=== PATIENT | male | born 1950 | race Caucasian/White ===

== ENCOUNTER 2019-09-08 03:08 | Inpatient (IN) | payer MEDICARE, OTHER ==
[~2019-09-08] VITALS: Ht 157.5 cm; Wt 65.3 kg
--- NOTE | 2019-09-08 05:30 | NUR ---
RN samantha admission notes Pt arrived at the unit with two EMT from [facility] and in a gurney. Pt is 69 Y O Male is a direct admit from [facility]. Pt is alert and orientedX4. Pt speaks [place] and able to make needs known. Respiration is normal. No SOB. No S/S of distress noted. VS is stable. Afebrile. IV sites at LAC# 20 is clean, intact and flush without resistance. Skin assessment is done and performed. Pt's skin is intact. Pt's belonging was checked by DEJAH Gonzalez. Reorient Pt to the room and the use of call light. Pt verbalize understanding. Admission order received from MD. Safety precautions is maintained. Bed at low position, brakes locked, side railsupX2 and call light is within reach. Will continue to monitor.
[2019-09-08 05:40] VITALS: BP 94/52
[2019-09-08 05:45] VITALS: BP 94/52
[2019-09-08] MEDS ORDERED: IV NS 0.9% 1,000 ML IV PRN (05:49)
[2019-09-08] MEDS ORDERED: Z GUARD REMEDY 2 OZ OINT TP PRN (06:00)
[2019-09-08] MEDS ORDERED: MAGNESIUM HYDROXIDE 30 ML UDC PO PRN (06:00)
[2019-09-08] MEDS ORDERED: HYDROCODONE/APAP 5/325MG 1 EACH TABLET PO PRN (06:00)
[2019-09-08] MEDS ORDERED: ONDANSETRON HCL/PF 4 MG/2 ML VIAL IVP PRN (06:00)
[2019-09-08] MEDS ORDERED: MAG HYDROX/AL HYDROX/SIMETH 30 ML UDC PO PRN (06:00)
[2019-09-08] MEDS ORDERED: ZOLPIDEM TARTRATE 5 MG TABLET PO PRN (06:00)
[2019-09-08] MEDS ORDERED: ACETAMINOPHEN 325 MG TABLET PO PRN (06:00)
--- NOTE | 2019-09-08 07:00 | NUR ---
RN medsurg closing notes Pt is resting in bed comfortably. Pt is alert and orientedX4. Respiration is normal. No SOB. No S/S of distress noted. IV sites at LAC# 20 is clean, intact and infusing well NS@ 80 ml/hr. VS is stable. Afebrile. Kept Pt clean, dry and comfortable. All needs met and attended. Safety precautions is maintained. Bed at low position, brakes locked, side railsupX2 and call light is within reach. Will endorse to morning nurse for PACO.
--- NOTE | 2019-09-08 07:49 | NUR ---
MS RN OPENING NOTE RECEIVED PATIENT IN BED RESTING COMFORTABLY. PATIENT IN NO ACUTE DISTRESS. NO SOB NOTED. PATIENT BREATHING IS EVEN AND UNLABORED. PATIENT HOB IS ELEVATED. SAFETY PRECAUTIONS IN PLACE. PATIENT BED ALARM IS ON. PATIENT BED IS LOCKED AND IN LOWEST POSITION. CALL LIGHT WITHIN REACH. WILL CONTINUE TO MONITOR.
[2019-09-08 08:00] VITALS: BP 92/55
[2019-09-08] MEDS: CEFTRIAXONE 1 G in IV D5W 50 ML IV SCH (08:20)
[2019-09-08] MEDS: PANTOPRAZOLE 40 MG VIAL IV SCH (08:22)
[2019-09-08] MEDS ORDERED: CEFTRIAXONE 1 G VIAL IM SCH (09:00)
[2019-09-08] MEDS: METRONIDAZOLE 500MG/ NS 100ML 500 MG in PREMIX 1 EA IV SCH ×2 (09:30→17:21)
[2019-09-08] MEDS ORDERED: METRONIDAZOLE 500MG/ NS 100ML 500 MG in PREMIX 1 EA IV SCH (10:00)
[2019-09-08] MEDS ORDERED: DICY20TA11 PO (11:06)
[2019-09-08] MEDS ORDERED: FLUT1BLS IH (11:06)
[2019-09-08] MEDS ORDERED: DONE10TA44 PO (11:06)
[2019-09-08] MEDS ORDERED: METO25TA4 PO (11:06)
[2019-09-08] MEDS ORDERED: METR-147 PO (11:06)
[2019-09-08] MEDS ORDERED: FERR325T23 PO (11:06)
[2019-09-08] MEDS ORDERED: TAMS-12 PO (11:06)
[2019-09-08] MEDS ORDERED: ERGO500040 PO (11:06)
[2019-09-08] MEDS ORDERED: MONT10TA22 PO (11:06)
[2019-09-08] MEDS ORDERED: CIPR-262 PO (11:06)
[2019-09-08] MEDS ORDERED: OMEP1CAP25 PO (11:06)
[2019-09-08] MEDS ORDERED: LISI-607 PO (11:06)
[2019-09-08] MEDS ORDERED: LIDO700A30 TP (11:06)
[2019-09-08] MEDS ORDERED: LOPE2CAP PO (11:06)
[2019-09-08] MEDS ORDERED: METF-442 PO (11:06)
[2019-09-08] MEDS ORDERED: ALIR150P SQ (11:06)
--- NOTE | 2019-09-08 16:30 | NUR ---
MS RN NOTE BROTHER IN LAW MERCEDES CALLED IN FOR UPDATE IN PLAN OF CARE. PER MERCEDES PATIENT WAS PREVIOUSLY HOSPITALIZED AT [facility] FOR SIMILAR CONDITIONS OF HIS CURRENT ADMISSION. INFORMED [place] GRANADOS AND PER [place] REQUESTED BROTHER IN LAWS CONTACT NUMBER. CONTACT NUMBER GIVEN TO [place]. PER [place] TRY TO OBTAIN RECORDS FROM [facility]. FAXED OVER TO [facility] WITH CONSENT OF PATIENT FOR PREVIOUS HOSPITAL RECORDS. [place] GRANADOS MADE AWARE.
[2019-09-08] MEDS: FERROUS SULFATE (325 MG) 325 MG/TAB TABLET PO SCH (17:00)
[2019-09-08] MEDS ORDERED: DEXTROSE 50%-WATER 50 ML DISP.SYRIN IV PRN (17:00)
[2019-09-08] MEDS: BLOOD SUGAR DIAGNOSTIC 1 EACH STRIP IN SCH ×2 (17:20→21:32)
--- NOTE | 2019-09-08 17:27 | NUR ---
MS RN NOTE PATIENT BLOOD SUGAR 68. NO INSULIN GIVEN PER PROTOCOL.
--- NOTE | 2019-09-08 17:39 | NUR ---
MS RN NOTE INFORMED [place] GRANADOS PATIENT BLOOD SUGAR 69 AND IS MAINTAINED NPO STATUS ON CURRENT FLUIDS 0.9%NS. PER [place] GRANADOS OKAY TO CHANGE IVF TO D5NS AT SAME RATE OF 80ML/HR.
[2019-09-08] MEDS: IV D5/ 0.9% NACL 1,000 ML IV PRN (18:21)
[2019-09-08 18:41] VITALS: BP 101/63
--- NOTE | 2019-09-08 18:52 | NUR ---
MS RN CLOSING NOTE PATIENT IN BED RESTING COMFORTABLY. PATIENT IN NO ACUTE DISTRESS. NO SOB NOTED. PATIENT BREATHING IS EVEN AND UNLABORED. PATIENT BLOOD SUGAR IS 78. PATIENT HOB IS ELEVATED. PATIENT MAINTAINED NPO STATUS. PATIENT KEPT CLEAN, DRY, AND COMFORTABLE THROUGHOUT SHIFT. SAFETY PRECAUTIONS IN PLACE. PATIENT BED ALARM IS ON. PATIENT BED IS LOCKED AND IN LOWEST POSITION. CALL LIGHT WITHIN REACH. WILL ENDORSE CARE TO PM SHIFT FOR PACO.
--- NOTE | 2019-09-08 19:30 | NUR ---
ms rn opening note received patient in bed. a/ox4. tolerating room air. respirations are even and unlabored. no s/s sob noted. no c/o pain at this time. in no apparent distress. iv access in lac#20 running D5NS@80ml/hr. bed is low an dlocked, hob flat, side rials up x3, call light within reach. will continue to monitor.
[2019-09-08 20:00] VITALS: BP 95/58
[2019-09-08] MEDS: DONEPEZIL 5 MG TABLET PO SCH (21:29)
[2019-09-09] MEDS: METRONIDAZOLE 500MG/ NS 100ML 500 MG in PREMIX 1 EA IV SCH ×3 (00:25→16:20)
[2019-09-09] MEDS: BLOOD SUGAR DIAGNOSTIC 1 EACH STRIP IN SCH ×4 (06:22→21:17)
[2019-09-09 06:34] LABS: BASOPHILS % (AUTO) 0.3 % (0.0-2.0); EOSINOPHILS % (AUTO) 1.2 % (0.0-6.0); HEMATOCRIT 40 % (39-51); HEMOGLOBIN 12.8 g/dL (13.5-17.5); LYMPHOCYTES # (AUTO) 1.3 /CMM (0.8-4.8); LYMPHOCYTES % (AUTO) 12.2 % (20.0-44.0); MEAN CORPUSCULAR HGB CONC 32 g/dl (31.0-36.0); MEAN CORPUSCULAR VOLUME 94 fL (80-96); MONOCYTES % (AUTO) 9.4 % (2.0-12.0); NEUTROPHILS # (AUTO) 8.4 /CMM (1.8-8.9); NEUTROPHILS % (AUTO) 76.9 % (43.0-81.0); PLATELET COUNT (AUTO) 143 /CMM (150-450); RED BLOOD CELL COUNT(AUTO) 4.26 MIL/uL (4.5-6.0); WHITE BLOOD COUNT (AUTO) 10.9 K/uL (4.3-11.0)
[2019-09-09 06:37] LABS: ALBUMIN 2.6 g/dL (3.4-5.0); BILIRUBIN,DIRECT 0.1 mg/dL (0.0-0.2); BILIRUBIN,TOTAL 0.2 mg/dL (0.2-1.0); CALCIUM, SERUM 7.3 mg/dL (8.5-10.1); CREATININE 1.2 mg/dL (0.6-1.3); MAGNESIUM 2.1 mg/dL (1.8-2.4); PHOSPHORUS 1.9 mg/dL (2.5-4.9); POTASSIUM 3.5 mmol/L (3.5-5.1)
[2019-09-09] MEDS: CEFTRIAXONE 1 G in IV D5W 50 ML IV SCH (07:19)
[2019-09-09] MEDS: IV D5/ 0.9% NACL 1,000 ML IV PRN (07:22)
--- NOTE | 2019-09-09 07:28 | NUR ---
ms rn closing note patient in bed. a/ox4. tolerating room air. no resp distress. no c/o pain t/o shift. no distress. iv access maintained in lac#20 running D5NS@80ml/hr currently infusing rocephin. bed remains low an dlocked, hob flat, side rials up x3, call light within reach. will endorse to next shift
[2019-09-09 08:00] VITALS: BP 133/74
[2019-09-09] MEDS: LISINOPRIL (5MG) 5 MG TABLET PO SCH (08:04)
[2019-09-09] MEDS: FERROUS SULFATE (325 MG) 325 MG/TAB TABLET PO SCH ×2 (08:04→16:20)
[2019-09-09] MEDS: PANTOPRAZOLE 40 MG VIAL IV SCH (08:10)
[2019-09-09] MEDS: FLUTICASONE/VILANTEROL 1 EACH BLST.W.DEV IH SCH (08:10)
--- NOTE | 2019-09-09 08:10 | NUR ---
MS RN NOTE HELD PATIENTS PO AM MEDICATIONS DUE TO NPO STATUS AT THIS TIME.
--- NOTE | 2019-09-09 11:15 | NUR ---
MS RN NOTE PATIENT BLOOD SUGAR IS 88. NO INSULIN COVERAGE NEEDED PER PROTOCOL.
--- NOTE | 2019-09-09 16:17 | NUR ---
MS RN NOTE NOTIFIED CAR[place]INA GRANADOS THAT RECORDS FROM [facility] HAS BEEN OBTAINED AND PLACE IN PATIENT CHART. [place] MADE AWARE.
--- NOTE | 2019-09-09 16:34 | NUR ---
MS RN NOTE PATIENT BLOOD SUGAR IS 107. NO INSULIN COVERAGE NEEDED PER PROTOCOL.
[2019-09-09] MEDS: POTASSIUM PHOSPHATE MM 7.5 MMOL in IV NS 0.9% 100 ML IV SCH ×3 (17:25→23:48)
--- NOTE | 2019-09-09 17:53 | NUR ---
MS RN NOTE SPOKE WITH [place] GRANADOS NP, PER [place] ORDER FOR PATIENT TO BE PLACED ON SOFT DIET. Addendum: 09/09/19 at 1900 by SAMPSON TROY RN RN NOTE PATIENT SEEN AND EVALUATED BY [place] GRANADOS. SPOKE WITH [place] GRANADOS NP, PER [place] ORDER FOR PATIENT TO BE PLACED ON SOFT DIET.
[2019-09-09 18:32] VITALS: BP 144/74
--- NOTE | 2019-09-09 18:58 | NUR ---
MS RN CLOSING NOTE PATIENT IN BED RESTING COMFORTABLY. PATIENT IN NO ACUTE DISTRESS. NO SOB NOTED. PATIENT BREATHING IS EVEN AND UNLABORED. PATIENT HOB IS ELEVATED. PATIENT ON SOFT DIET, TOLERATED SOFT DIET DINNER WELL. PATIENT KEPT CLEAN, DRY, AND COMFORTABLE THROUGHOUT SHIFT. NEEDS AND CONCERNS ADDRESSED. SAFETY PRECAUTIONS IN PLACE. PATIENT BED ALARM IS ON. PATIENT BED IS LOCKED AND IN LOWEST POSITION. CALL LIGHT WITHIN REACH. WILL ENDORSE CARE TO PM SHIFT FOR PACO.
--- NOTE | 2019-09-09 19:10 | NUR ---
MS/RN OPENING NOTES: RECEIVED PATIENT IN BED RESTING COMFORTABLY. IN NO ACUTE DISTRESS. NO SOB NOTED. PATIENT BREATHING IS EVEN AND UNLABORED. PATIENT HOB IS ELEVATED. PATIENT ON SOFT DIET, TOLERATED SOFT DIET DINNER WELL. PATIENT NEEDS AND CONCERNS ADDRESSED AT THIS TIME. SAFETY PRECAUTIONS IN PLACE. PATIENT BED ALARM IS ON. PATIENT BED IS LOCKED AND IN LOWEST POSITION. CALL LIGHT WITHIN REACH. WILL CONTINUE TO MONITOR ACCORDINGLY.
[2019-09-09 20:00] VITALS: BP 129/60
[2019-09-09] MEDS: DONEPEZIL 5 MG TABLET PO SCH (21:18)
[2019-09-09] MEDS: INSULIN REGULAR, HUMAN 100 UNIT/ML 3 ML VIAL SQ PRN (21:19)
--- NOTE | 2019-09-09 22:30 | NUR ---
MS/RN NOTES: BS CHECK FOR HS 132. 2 UNITS REG. INSULIN COVERAGE ADMINISTERED PER SLIDING SCALE. PT. GIVEN APPLE JUICE. TOLERATED WELL. WILL CONTINUE TO MONITOR.
[2019-09-10] MEDS: METRONIDAZOLE 500MG/ NS 100ML 500 MG in PREMIX 1 EA IV SCH ×3 (01:58→17:06)
[2019-09-10] MEDS: POTASSIUM PHOSPHATE MM 7.5 MMOL in IV NS 0.9% 100 ML IV SCH (02:58)
[2019-09-10] MEDS: INSULIN REGULAR, HUMAN 100 UNIT/ML 3 ML VIAL SQ PRN (06:33)
[2019-09-10] MEDS: BLOOD SUGAR DIAGNOSTIC 1 EACH STRIP IN SCH ×3 (06:33→17:06)
[2019-09-10 06:50] LABS: CALCIUM, SERUM 7.6 mg/dL (8.5-10.1); CREATININE 1.1 mg/dL (0.6-1.3); PHOSPHORUS 2.7 mg/dL (2.5-4.9); POTASSIUM 3.8 mmol/L (3.5-5.1)
--- NOTE | 2019-09-10 06:53 | NUR ---
MS/RN CLOSING NOTE: PATIENT IN BED RESTING COMFORTABLY. REMAINS A/OX4. IN NO ACUTE DISTRESS. NO SOB NOTED. PATIENT BREATHING IS EVEN AND UNLABORED. PATIENT HOB IS ELEVATED. ALL NURSING NEEDS MET AND RENDERED. ALL DUE MEDS GIVEN ORDERED. BS CHECK FOR AC 76. NO INSULIN COVERAGE NEEDED PER SLIDING SCALE. PT. GIVEN APPLE JUICE. TOLERATED WELL. PATIENT KEPT CLEAN, DRY, AND COMFORTABLE THROUGHOUT SHIFT. SAFETY PRECAUTIONS IN PLACE. PATIENT BED ALARM IS ON. PATIENT BED IS LOCKED AND IN LOWEST POSITION. CALL LIGHT WITHIN REACH. WILL ENDORSE CARE TO AM SHIFT FOR PACO.
--- NOTE | 2019-09-10 07:30 | NUR ---
RN OPENING NOTES: RECEIVED PATIENT IN BED RESTING COMFORTABLY. NOT IN ANY FORM OF DISTRESS. NO SOB NOTED. PATIENT BREATHING IS EVEN AND UNLABORED. PATIENT HOB IS ELEVATED. SAFETY PRECAUTIONS IN PLACE. PATIENT BED ALARM IS ON. PATIENT BED IS LOCKED AND IN LOWEST POSITION. CALL LIGHT WITHIN REACH. WILL CONTINUE TO MONITOR ACCORDINGLY.
[2019-09-10 08:00] VITALS: BP 140/79
[2019-09-10] MEDS: CEFTRIAXONE 1 G in IV D5W 50 ML IV SCH (08:05)
[2019-09-10] MEDS: PANTOPRAZOLE 40 MG VIAL IV SCH (08:08)
[2019-09-10] MEDS: FERROUS SULFATE (325 MG) 325 MG/TAB TABLET PO SCH ×2 (08:09→17:06)
[2019-09-10] MEDS: LISINOPRIL (5MG) 5 MG TABLET PO SCH (08:10)
[2019-09-10] MEDS: FLUTICASONE/VILANTEROL 1 EACH BLST.W.DEV IH SCH (08:12)
[2019-09-10] MEDS ORDERED: CIPR-262 PO (14:14)
[2019-09-10] MEDS ORDERED: METR500T PO (14:14)
[2019-09-10 16:00] VITALS: BP 135/71
--- NOTE | 2019-09-10 17:10 | NUR ---
rn notes BS 63, orange juice given.
--- NOTE | 2019-09-10 17:32 | NUR ---
DISCHARGED PATIENT IN STABLE CONDITION.DC INSTRUCTIONS GIVEN, TO CONT ANTIBIOTICS, AND FOLLOW UP PCP. VERBALIZED UNDERSTANDING. ALL BELONGINGS RETURNED. FORMS SIGNED. IV ACCESS REMOVED, TIP INTACT, NO COMPLICATIONS. NAME BAND REMOVED.
[2019-09-12] MEDS ORDERED: ERGOCALCIFEROL (VITAMIN D 2) 50,000 UNIT CAPSULE PO SCH (09:00)
== END 2019-09-10 17:39 | disposition home health service (06) | DRG 391 ==
LOC: MEDSG2 05:17
PROVIDERS: ADMIT Nurse Practitioner Acute Care; ATTEND Nurse Practitioner Acute Care
DX: K57.20 Diverticulitis of large intestine with perforation and abscess without bleeding (principal); N17.0 Acute kidney failure with tubular necrosis; M48.50XA Collapsed vertebra, not elsewhere classified, site unspecified, initial encounter for fracture; D72.829 Elevated white blood cell count, unspecified; F03.90 Unspecified dementia, unspecified severity, without behavioral disturbance, psychotic disturbance, mood disturbance, and anxiety; D50.9 Iron deficiency anemia, unspecified; E11.9 Type 2 diabetes mellitus without complications; I10 Essential (primary) hypertension; E78.5 Hyperlipidemia, unspecified; E55.9 Vitamin D deficiency, unspecified; N40.0 Benign prostatic hyperplasia without lower urinary tract symptoms; M85.80 Other specified disorders of bone density and structure, unspecified site; Z90.49 Acquired absence of other specified parts of digestive tract; Z87.891 Personal history of nicotine dependence; J45.909 Unspecified asthma, uncomplicated; Z79.899 Other long term (current) drug therapy
CPT/HCPCS: 36415; 80048-TC; 80053-TC; 80061-TC; 80076-TC; 82962-TC; 83735-TC; 84100-TC; 85025-TC; 87081-TC; A4216; C9113; G0378; J0696; J1815; J3490; J7030; J7042; J7060